=== PATIENT | male | born 1970 | race Caucasian/White ===

== ENCOUNTER → 2018-12-08 | Outpatient (CLI) | payer OTHER ==
--- NOTE | 2018-12-27 22:15 | SLEEPCENT ---
DATE OF PROCEDURE: 12/08/2018 REFERRING PROVIDER: Dr. Morales INTERPRETATION: Nocturnal polysomnography was performed for the re-titration of pressure therapy in this patient with severe obstructive sleep apnea with an apnea-hypopnea index (AHI) of 43.4 with associated desaturations to 58%. The patient had been on continuous positive airway pressure (CPAP) at 20 cm at home but still had symptoms. The plan had been to decrease it slightly in the lab anticipating a rapid ramp up and likely change to bilevel therapy. That did not occur, and he reached 20 cm H2O towards the end of the study. A total of 6 hours and 53 minutes of data was reviewed for the entire titration with 359.5 minutes of sleep observed. Sleep latency was 1 minute. Rapid eye movement (REM) latency was 86 minutes. No slow wave sleep was seen. Sleep efficiency was 88.4. EKG showed normal sinus rhythm with an average heart rate of 72 beats per minute. Speeding and slowing was noted surrounding some respiratory events. No epileptiform discharge observed. The patient had been fit with a [employer] [place] View full face mask of medium size, 16 cm of water pressure was applied to the circuit and the lights were dimmed. CPAP begun at 16 cm of water was eventually taken to a high of 20 cm of water. No ideal pressure was identified. He overall likely did best on the pressure of 20 cm of water. The pattern throughout the night was that he had obstructive events in REM sleep associated with significant desaturations. In other stages of sleep, he did not have difficulties. He was supine for the entire titration. On the pressure of 20, his apnea-hypopnea index (AHI) was 17.1. His respiratory arousal index (VALENTINE) was 0. His oxygen saturation ani was 83%. Periodic limb movement (PLM) index was 8.6. IMPRESSION: 1. Obstructive sleep apnea, severe, no optimal pressure identified. Events occurred predominantly in REM sleep and were associated with significant desaturation. RECOMMENDATIONS: Recommend CPAP be increased to 22 cm of water (he is on 20 currently at home). We will need to reevaluate him clinically and likely have an overnight oximetry done on the new pressure to make certain that his symptoms have eradicated and that his oxygen desaturation is tempered. He may require further re-titration. ROBYN
== END ==
LOC: M SLEEP 19:37
PROVIDERS: ATTEND Internal Medicine Pulmonary Disease
DX: G47.33 Obstructive sleep apnea (adult) (pediatric) (principal)

== ENCOUNTER → 2019-02-02 | Outpatient (CLI) | payer OTHER | LOC: M SLEEP 19:50 | PROVIDERS: ATTEND Internal Medicine Pulmonary Disease | DX: G47.33 Obstructive sleep apnea (adult) (pediatric) (principal) ==